=== PATIENT | female | born 1995 | race Caucasian/White ===

== ENCOUNTER → 2018-10-25 17:41 | Outpatient (CLI) | payer BC, SELFPAY ==
[2018-10-25 20:44] LABS: Chlamydia Trachomatis by PCR Negative (Negative); Neisserai gonorrhoeae by PCR Negative (Negative); Probe Check PASS; Sample Adequacy Control PASS; Specimen Processing Control PASS
== END ==
PROVIDERS: Family Provider Family Medicine; PCP Family Medicine; Referring Provider Obstetrics & Gynecology; Visit Provider Obstetrics & Gynecology
DX: Z12.4 Encounter for screening for malignant neoplasm of cervix (principal); Z11.3 Encounter for screening for infections with a predominantly sexual mode of transmission
CPT/HCPCS: 87491; 87591; 88175; G0145

== ENCOUNTER → 2019-11-27 16:05 | Outpatient (CLI) | payer OTHER, SELFPAY ==
[2018-11-21 17:14] VITALS: BMI 23.7
[2019-12-03 23:58] LABS: HPV APTIMA, High Risk Positive (Negative)
[2019-12-06 00:30] LABS: HPV Reflexed? YES, CHARGE PATIENT
== END ==
PROVIDERS: PCP Family Medicine; Referring Provider Obstetrics & Gynecology; Visit Provider Obstetrics & Gynecology
DX: Z12.4 Encounter for screening for malignant neoplasm of cervix (principal)
CPT/HCPCS: 87624; 88175; G0145

== ENCOUNTER → 2020-12-30 11:39 | Outpatient (CLI) | payer OTHER, SELFPAY ==
[2018-11-21 17:14] VITALS: BMI 23.7
[2021-01-06 12:07] LABS: HPV APTIMA, High Risk Positive (Negative)
[2021-01-06 12:08] LABS: HPV Reflexed? YES, CHARGE PATIENT
== END ==
PROVIDERS: Visit Provider Obstetrics & Gynecology
DX: Z12.4 Encounter for screening for malignant neoplasm of cervix (principal)
CPT/HCPCS: 87624; 88175; G0145

== ENCOUNTER → 2021-01-21 17:33 | Outpatient (CLI) | payer OTHER, SELFPAY ==
[2018-11-21 17:14] VITALS: BMI 23.7
--- NOTE | 2021-01-21 | IMM_PTH ---
PATIENT: CODY COOL LOC: [facility] U#:[id number] AGE/SX: 29/F ROOM: RE01/21/[address]: Dr. Herve Ragnel MD : 1995 BED: DIS: SPEC #: [id number] RECD: 01/25/21 11:44 STATUS: CONCEPCION RETray #: [id number] MARILU: 01/21/21 00:[address]: Herve Rangel DEPT: IMMUNOHISTOCHEMISTRY RECD BY: Fela Flores Tissues: A - Uterine cervix, NOS Procedures: p16 (initial) KI-67 (add) PHYSICIAN & INSTITUTION [place] [address] SPECIMEN INFORMATION: Tissue Source: A ? Cervical biopsy Clinical Info: R87.612 Specimen Number: [id number] CPT code: 39588, 49992 METHODOLOGY: Deparaffinized sections of prefer/formalin-fixed tissue or PAP/DQ stained slides are incubated with monoclonal/polyclonal antibodies/oligonucleotide probes. Localization is made via biotin free immunoperoxidase method. Appropriate controls are performed and reacted as expected. Results on target cell population are indicated in the following table: RESULTS: ANTIBODY / CLONE RESULT Block A P16 (E6H4) positive, patchy to block-like Ki-67 (30-9) positive, mild These tests were developed and their performance characteristics determined by [facility]. They may not have been cleared or approved by the U.S. Food and Drug Administration. The FDA has determined that such clearance or approval is not necessary. The above immunohistochemical/dualISH markers are ordered and reviewed by the Pathologist. INTERPRETATION: A. Cervix, biopsy: Focal mild to moderate squamous dysplasia, MARCO I-II (HSIL). AM:khang 01/26/2021
--- NOTE | 2021-01-21 15:00 | CER_PTH ---
PATIENT: CODY COOL LOC: [facility] U#:[id number] AGE/SX: 29/F ROOM: RE01/21/[address]: Dr. Herve Rangel MD : 1995 BED: DIS: SPEC #: [id number] RECD: 01/21/21 17:45 STATUS: CONCEPCION IGLESIA #: [id number] MARILU: 01/21/21 15:[address]: Herve Rangel DEPT: SURGICAL PATHOLOGY RECD BY: Flori Narvaez Tissues: A - Uterine cervix, NOS B - Endocervical Procedures: Surgery Specimen Level IV HEADER OPERATION: Colposcopy PRE-OP DIAGNOSIS: R87.612 TISSUE SUBMITTED: A ? Cervical biopsy at [facility] MICROSCOPIC DIAGNOSIS A. Cervix, biopsy: Mild and focal moderate squamous dysplasia, CIN1-II (HSIL). Squamous metaplasia and chronic inflammation. See comment. B. Endocervix, curettings: Strips of benign endocervical mucosa. No evidence of dysplasia. AM:khang 01/25/2021 COMMENT A. Results from immunohistochemistry ([id number]) for surrogate HPV marker (p16) will be reported separately. Case has been reviewed in consultation with Dr. Castellano who concurs with the above diagnosis. IDC:SJ MICROSCOPIC DESCRIPTION Slides are reviewed. GROSS DESCRIPTION A - Received in fixative is one container labeled with the patient's name and designated cervical biopsy. The specimen consists of multiple irregular fragments of light morales soft tissue that in aggregate measure 1.5 x 0.5 x 0.1 cm. The specimen is totally submitted in one cassette. B - Received in fixative is one container labeled with the patient's name and designated ECC. The specimen consists of light to dark morales mucoid tissue measuring in aggregate 2.5 x 1.5 x <0.1 cm. The specimen is totally submitted in one cassette. / AM:khang 01/22/21 TC:3 CPT: 07225 x2
== END ==
PROVIDERS: Visit Provider Obstetrics & Gynecology
DX: R87.612 Low grade squamous intraepithelial lesion on cytologic smear of cervix (LGSIL) (principal)
CPT/HCPCS: 88305; 88341; 88342

== ENCOUNTER 2021-03-18 06:23 | Day surgery (SDC) | payer OTHER, SELFPAY ==
[2018-11-21 17:14] VITALS: BMI 23.7
[2021-03-18] VITALS (7 sets, daily range): BP systolic 112–135; BP diastolic 67–79; PULSE 55–72; RESP 14–18; TEMP 36.1–36.4; O2SAT 97–100; BMI 22.6
--- NOTE | 2021-03-18 | CER_PTH ---
PATIENT: CODY COOL LOC: [facility] U#:[id number] AGE/SX: 25/F ROOM: RE03/18/[address]: Dr. Herve Rangel MD : 1995 BED: DIS: 03/18/2021 SPEC #: [id number] RECD: 03/18/21 12:50 STATUS: CONCEPCION IGLESIA #: [id number] MARILU: 03/18/21 00:[address]: Herve Rangel DEPT: SURGICAL PATHOLOGY RECD BY: Harsh Stuart ENTERED: 03/18/21 12:50 SP TYPE: CERV OTHR DR: Dr. Wade Cristobal MD Tissues: Uterine cervix, NOS Procedures: Surgery Specimen Level V HEADER OPERATION: LEEP cone PRE-OP DIAGNOSIS: LGSIL TISSUE SUBMITTED: Ectocervix, stitch as 12 o?clock MICROSCOPIC DIAGNOSIS Ectocervix, LEEP conization: Mild squamous dysplasia, MARCO 1. Margins are free of dysplasia. Acute and chronic inflammation and squamous metaplasia. See comment. SJ:khang 03/19/2021 COMMENT Results from immunohistochemistry ([id number]) for surrogate HPV marker (p16) will be reported separately. Please make reference to previous specimen ([id number]) cervix, biopsy with diagnosis of ?mild and focal moderate squamous dysplasia.? Case has been reviewed in consultation with Dr. Castellano who concurs with the above diagnosis. IDC:SARAH MICROSCOPIC DESCRIPTION Slides are reviewed. GROSS DESCRIPTION Received in fixative is one container labeled with the patient's name and designated ectocervix, stitch as 12 o'clock. The specimen consists of two indurated pieces of morales tissue. One of the pieces measure 1.5 x 1.5 x 0.3 cm. This is oriented by a suture at 12 o?clock. It is open at 9 o?clock position. Also present in the container is a second piece of semicircular piece of morales, indurated tissue measuring 2 x 0.5 x 0.3 cm. A suture is also noted, most likely representing 12 o?clock positon; however, 3 to 6 o?clock portion of this tissue is absent from the specimen. No mucosal lesion is identified. Nonmucosal surface is inked black. The entire specimen is submitted in seven cassettes as follows: 1-4 - larger piece of tissue (1 - 12 to 3 o?clock, 2 - 3 to 6 o?clock, 3 - 6 to 9 o?clock and 4 - 9 to 12 o?clock), 5-7 - smaller piece of tissue (5 - 12 to 3 o?clock, 6 - 6 to 9 o?clock, 7 - 9 to 12 o?clock). / SARAH:khang 03/18/21 TC:5 CPT: 51063
--- NOTE | 2021-03-18 | IMM_PTH ---
PATIENT: CODY COOL LOC: [facility] [place] U#:[id number] AGE/SX: 25/F ROOM: RE03/18/[address]: Dr. Herve Rangel MD : 1995 BED: DIS: 03/18/2021 SPEC #: [id number] RECD: 03/19/21 14:14 STATUS: CONCEPCION REQ #: [id number] MARILU: 03/18/21 00:[address]: Herve Rangel DEPT: IMMUNOHISTOCHEMISTRY RECD BY: Fela Flores ENTERED: 03/19/21 14:15 SP TYPE: IMMUNO OTHR DR: Dr. Wade Cristobal MD Tissues: Uterine cervix, NOS Procedures: p16 (initial) KI-67 (add) P16 (add) PHYSICIAN & INSTITUTION [place] [address] SPECIMEN INFORMATION: Tissue Source: Ectocervix Clinical Info: LGSIL Specimen Number: [id number] #1-4 CPT code: 61009, 09060 x7 METHODOLOGY: Deparaffinized sections of prefer/formalin-fixed tissue or PAP/DQ stained slides are incubated with monoclonal/polyclonal antibodies/oligonucleotide probes. Localization is made via biotin free immunoperoxidase method. Appropriate controls are performed and reacted as expected. Results on target cell population are indicated in the following table: RESULTS: ANTIBODY / CLONE RESULT Block 1 P16 (E6H4) positive, focal, patchy Ki-67 (30-9) positive, low Block 2 P16 (E6H4) positive, focal, patchy Ki-67 (30-9) positive, low Block 3 P16 (E6H4) positive, focal, patchy Ki-67 (30-9) positive, low Block 4 P16 (E6H4) positive, focal, patchy Ki-67 (30-9) positive, low These tests were developed and their performance characteristics determined by [facility]. They may not have been cleared or approved by the U.S. Food and Drug Administration. The FDA has determined that such clearance or approval is not necessary. The above immunohistochemical/dualISH markers are ordered and reviewed by the Pathologist. INTERPRETATION: Ectocervix, LEEP conization: Focal HPV change, LSIL AM:adan 03/23/2021
[2021-03-18 07:14] LABS: Internal QC Validated? YES +Cl - CLEAR BKGD; Pregnancy, Urine Negative Negative
--- NOTE | 2021-03-18 07:14 | PCM.HP.BLA ---
History and Physical Date of Admission: 03/18/21 Surgical History and Physical Date: 03/18/2021 Name: CODY WYMAN Age: 25 Date of : 1995 Cody Wyman, a 25 year old female 0 0 0 0 0, presents for LEEP on March 18, 2021 at 8:15. -- [facility] for LEEP 03-18-21. Consents signed. Questions answered. There have been no changes in her health. Allergy and medicaiton lists current. MEDICATIONS HISTORY: ALLERGIES: No Known Drug Allergies Infections - Varicella Vaccine, [place] Illnesses - none Accidents - None Hospitalizations - None Review of Systems: GENERAL - Denies fever, or chills SKIN - Denies skin changes EYES - Denies visual changes EARS - Denies difficulty hearing NOSE - Denies nasal congestion or bleeding MOUTH - Denies sore throat or difficulty swallowing NECK - Denies pain or swelling RESPIRATORY - Denies shortness of breath or wheezing CARDIOVASCULAR - Denies palpitations or chest pain GASTROINTESTINAL - Denies nausea, vomiting, diarrhea, constipation GENITOURINARY - Denies dysuria, frequency of urination, incontinence of urine MUSCULOSKELETAL - Denies joint or muscle pain NEUROLOGICAL - Denies localized numbness or weakness PSYCHIATRIC - Denies depression or anxiety ENDOCRINE - Denies heat or cold intolerance, weight loss or gain HEMATO-IMMUNOLOGIC - Denies excesive bleeding with cuts SOCIAL HISTORY: Alcohol Use - RARELY Smoking - denies smoking Diet - balanced Diet Lifestyle - moderate stress lifestyle Exercise - minimal Seat Belt Use - always Employer - [employer] 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 Drug Use - denies use of street drugs Sexual Activity - ACTIVE ONE PARTNER and 5 months Hours Worked - 40 hours per week Spouse-Sig Other Name - Dayday Wyman Spouse-Sig Other Occupation - [employer] Spouse-Sig Other Phone No - [phone] Control - NONE FAMILY HISTORY: MENSTRUAL HISTORY: LMP Known?- DefiniteAmount/Duration - 4-5 DAYS, Regularity - Irregular, Frequency - monthly days, LMP - 02/18/21 PAST PREGNANCIES: Total Pregnancies - 0; Full Term Pregnancies - 0; Premature - 0; Abortions, Induced - 0; Abortions, Spontaneous - 0; Ectopics - 0; Multiple Births - 0; Living Children - 0 PHYSICAL EXAM BP- 116/68 Sitting, Right arm, regular cuff Weight- 148.74752 lbs Height- 67 inch BMI:23.958141282216550 CONSTITUTIONAL - NAD, well nourished, and well developed SKIN - No rash, lesions, or ulcers HEENT - Normocephalic, PERRLA, EOMI NECK - No nodes, no nuchal rigidity and thyroid normal size and texture EXTREMITIES - No edema or calf tenderness NEUROLOGICAL - Cranial nerves II-XII grossly intact PSYCHIATRIC - A and O to time, place, person, mood and affect External Genitial Vagina - non-tender without lesions Urethra/Urethral Meatus - non-tender Bladder - non-tender Vagina - vaginal rodriguez are pink and moist without loss of rugae and no evidence of atropy Cervix - without cervical motion tenderness and has normal size and features without evident lesions Uterus - 5-6 cm in size, mobile and nontender Adnexa - clear without massess or tenderness ASSESSMENT/PLAN: 1. 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 Now status post colposcopy that showed MARCO-2 Educated patient on results. Risk benefits alternatives. Discussed repeat Pap smear in 6 months x 2 versus LEEP procedure now. Discussed risks of future pregnancies with delivery and miscarriage. Patient stated understanding wish to proceed with LEEP procedure 2. Encounter For Other Preprocedural Examination For LEEP procedure Educated on risk benefits alternatives. Patient stated understanding wish to proceed. All questions were answered consent was signed Educated patient on preoperative and postoperative process, discussed recovery and pain control
[2021-03-18] MEDS: Lactated Ringers 1,000 ML 100 ML IV (07:46)
[2021-03-18] MEDS: Iodine/Potassium Iodide 14ML Bottle 1 DRP TOPICAL (08:45)
[2021-03-18] MEDS: FERRIC SUBSULFATE 8 GM SOLN (08:45)
--- NOTE | 2021-03-18 08:52 | PCM.DC ---
Discharge Instructions Diet Discharge Diet: No restrictions Activity Discharge Activity: Return to Normal Activity, May Drive, May Shower and - (No tub baths for 2 weeks) May resume sexual activity in: 4-6 weeks Weight Bearing Status: Weight bearing as tolerated Dressing / Incision Call your doctor if your incision/area has: Continuous Slow Oozing and Foul Smelling Discharge Call your doctor if you observe: Fever of 101 or Higher, Shortness of breath and Chest pain Follow Up Care Please Follow Up With: Herve Rangel MD When: 2-week postoperatively Test Results: Test results from this visit will be discussed in further detail at your follow-up appointment, if applicable. Discharge Plan Admission Attending Provider: Herve Rangel Primary Care Provider: Shaheed Cristobal Discharge Orders/Prescriptions Prescriptions: No Action 1 mg Tablet 1 tab PO DAILY RF: 0 Collagen Plus Vitamin C 125-740 mg Capsule 1 cap PO DAILY RF: 0 Disposition Discharge Orders: Discharge Patient (Routine); Ordered 03/18/21 Ordered By: Dr. Herve Rangel
--- NOTE | 2021-03-18 08:52 | PCM.OPRPT ---
Report of Operation Date of Procedure: 03/18/21 Pre-Operative Diagnosis: LGSIL HPV positive Post-Operative Diagnosis: LGSIL HPV positive Surgery/Procedure Performed:: LEEP Description of Surgical Findings:: Surgeon: Herve Rangel MD Anesthesia: MAC EBL: 10 cc Urine output: 50 cc IV fluids: 1100 cc Complications: None Specimen: Ectocervix Findings: Lugol's solution placed over cervix with opaque portions at 12 and 6:00. Otherwise within normal limits Consent: Patient with LGSIL HPV positive elects for LEEP procedure. Patient understands risk of the procedure include but are not limited to visceral or vascular injury, prolonged hospitalization, blood loss and need for transfusion, reoperation. Patient states understanding and wishes to proceed. All questions were answered and consent was signed. Procedure: Patient was brought back to the OR where MAC anesthesia was found be adequate. Patient was prepared and draped in a dorsolithotomy position with yellowfin stirrups. A speculum was placed and Lugol's solution was placed over the ectocervix, above findings were noted. Using a LEEP electrocautery, LEEP procedure and specimen was obtained. Sent to pathology. Hemostasis was achieved with rollerball Bovie and Monsel solution. All counts correct x2. Patient tolerated the procedure well and was brought to recovery in stable condition.
== END 2021-03-18 09:58 | disposition home or self-care (01) ==
LOC: SDC 06:24 → AC 06:26
PROVIDERS: Anesthesiology; PCP Family Medicine; Referring Provider Obstetrics & Gynecology; Visit Provider Obstetrics & Gynecology
PROC: 0UBC7ZZ Excision of Cervix, Via Natural or Artificial Opening (ICD-10-PCS; CPT 57522; principal; 2021-03-18 08:10)
DX: N87.0 Mild cervical dysplasia (principal); R87.820 Cervical low risk human papillomavirus (HPV) DNA test positive
CPT/HCPCS: 57522; 81025; 87426; 88307; 88341; 88342; C9803; J7120; J2405

== ENCOUNTER 2021-10-12 15:31 | Outpatient (CLI) | payer OTHER, SELFPAY ==
[2021-10-12 16:08] LABS: Absolute Lymphocyte Count 2.59 X10^3/uL (0.83-4.51); Absolute Neutrophil Count 8.9 X10^3/uL (2.0-7.7); Basophil# 0.04 X10^3/uL; Basophil% 0.3 % (0-1); Eosinophil# 0.12 X10^3/uL; Hemoglobin 13.7 g/dL (12.0-15.0); Lymphocyte # 2.59 X10^3/ul (0.83-4.51); Lymphocyte % 20.5 % (19-41); Mean Corp Hgb Conc 34.3 g/dL (32-36); Mean Corpuscular Hgb 28.2 pg (27.0-32.0); Mean Corpuscular Volume 82.5 fL (81-99); Monocyte# 0.92 X10^3/uL; Monocyte% 7.3 % (0-10); NRBC Flagged by Analyzer 0 % (0-5); Neutrophil # 8.89 X10^3/uL (2.7-7.7); Neutrophil % 70.5 % (47-70); Platelet Count 241 K/mm3 (150-450); RBC Distribution Width CV 12.5 % (11.6-14.6); RBC Distribution Width SD 37.6 fl (35.1-43.9); Red Blood Count 4.85 M/mm3 (4.2-5.4); White Blood Count 12.6 K/mm3 (4.4-11.0)
[2021-10-13 09:18] LABS: HIV - WCH Non-Reactive (Nonreactive); Hepatitis B Surface Antigen Non-Reactive (Nonreactive); Hepatitis C Antibody Non-Reactive (Nonreactive); Rubella IgG Reactive (Nonreactive); Syphilis Antibodies Non-reactive
[2021-10-14 22:07] LABS: Chlamydia By Nucleic Acid AMP Negative (Negative)
[2021-10-14 23:01] LABS: Gonococcus By Nucleic Acid AMP Negative (Negative)
== END 2021-10-12 23:59 | disposition home or self-care (01) ==
LOC: WOBLAB 15:31
PROVIDERS: PCP Family Medicine; Visit Provider Obstetrics & Gynecology
DX: Z34.81 Encounter for supervision of other normal pregnancy, first trimester (principal)
CPT/HCPCS: 36415; 85025; 86703; 86762; 86780; 86803; 87086; 87088; 87340; 87491; 87591

== ENCOUNTER → 2022-03-04 | Outpatient (CLI) | payer OTHER, SELFPAY ==
[2022-03-04 18:05] LABS: Absolute Lymphocyte Count 1.86 X10^3/uL (0.83-4.51); Absolute Neutrophil Count 9.5 X10^3/uL (2.0-7.7); Basophil# 0.04 X10^3/uL; Basophil% 0.3 % (0-1); Eosinophil# 0.03 X10^3/uL; Eosinophils% 0.2 % (0-5); Hematocrit 36.1 % (37-47); Hemoglobin 12.2 g/dL (12.0-15.0); Lymphocyte # 1.86 X10^3/ul (0.83-4.51); Lymphocyte % 15.3 % (19-41); Mean Corp Hgb Conc 33.8 g/dL (32-36); Mean Corpuscular Volume 88.7 fL (81-99); Mean Platelet Vol. 11.2 fl (6.2-12.0); Monocyte# 0.69 X10^3/uL; Monocyte% 5.7 % (0-10); NRBC Flagged by Analyzer 0 % (0-5); Neutrophil # 9.47 X10^3/uL (2.7-7.7); Neutrophil % 77.9 % (47-70); Platelet Count 203 K/mm3 (150-450); RBC Distribution Width CV 12.9 % (11.6-14.6); RBC Distribution Width SD 41.8 fl (35.1-43.9); Red Blood Count 4.07 M/mm3 (4.2-5.4); White Blood Count 12.2 K/mm3 (4.4-11.0)
[2022-03-04 18:12] LABS: Glucose Challenge Gest 1H 50g 177 mg/dL (70-140)
== END | disposition home or self-care (01) ==
PROVIDERS: PCP Family Medicine; Visit Provider Obstetrics & Gynecology
DX: Z34.83 Encounter for supervision of other normal pregnancy, third trimester (principal)
CPT/HCPCS: 36415; 82950; 85025

== ENCOUNTER → 2022-03-15 | Outpatient (CLI) | payer OTHER, SELFPAY ==
[2022-03-15 09:57] LABS: Glucose GTT-Gestation. Fasting 78 mg/dL (<105)
[2022-03-15 10:45] LABS: Glucose GTT-Gestational 1 Hr 172 mg/dL (<190)
[2022-03-15 12:49] LABS: Glucose GTT-Gestational 2 Hr 157 mg/dL (<165)
[2022-03-15 12:49] LABS: Glucose GTT-Gestational 3 Hr 150 L (<145)
== END | disposition home or self-care (01) ==
LOC: WOBLAB 08:39
PROVIDERS: PCP Family Medicine; Visit Provider Obstetrics & Gynecology
DX: Z34.83 Encounter for supervision of other normal pregnancy, third trimester (principal)
CPT/HCPCS: 36415; 82951; 82952

== ENCOUNTER → 2022-05-03 | Outpatient (CLI) | payer OTHER, SELFPAY | END | disposition home or self-care (01) | LOC: LABSPEC 09:26 | PROVIDERS: PCP Family Medicine; Visit Provider Obstetrics & Gynecology | DX: Z36.85 Encounter for antenatal screening for Streptococcus B (principal) | CPT/HCPCS: 87081 ==

== ENCOUNTER 2022-05-18 19:00 | Inpatient (IN) | payer OTHER, SELFPAY ==
[2022-05-18] VITALS (13 sets, daily range): BP systolic 121; BP diastolic 73; PULSE 56–69; TEMP 37.4; O2SAT 98–100; BMI 25.4
[2022-05-18 19:53] LABS: Absolute Lymphocyte Count 2.07 X10^3/uL (0.83-4.51); Absolute Neutrophil Count 7.9 X10^3/uL (2.0-7.7); Basophil# 0.02 X10^3/uL; Basophil% 0.2 % (0-1); Eosinophil# 0.05 X10^3/uL; Eosinophils% 0.5 % (0-5); Hematocrit 36.4 % (37-47); Hemoglobin 12.5 g/dL (12.0-15.0); Lymphocyte # 2.07 X10^3/ul (0.83-4.51); Lymphocyte % 18.8 % (19-41); Mean Corp Hgb Conc 34.3 g/dL (32-36); Mean Corpuscular Hgb 28.8 pg (27.0-32.0); Mean Corpuscular Volume 83.9 fL (81-99); Mean Platelet Vol. 11.3 fl (6.2-12.0); Monocyte% 8.2 % (0-10); NRBC Flagged by Analyzer 0 % (0-5); Neutrophil # 7.93 X10^3/uL (2.7-7.7); Neutrophil % 71.7 % (47-70); Platelet Count 180 K/mm3 (150-450); RBC Distribution Width SD 39.1 fl (35.1-43.9); Red Blood Count 4.34 M/mm3 (4.2-5.4)
[2022-05-18 20:01] LABS: Bedside Glucose 91 mg/dL (74-106)
[2022-05-18] MEDS: miSOPROStol 25 MCG TABLET VAGINAL (20:20)
[2022-05-18 20:55] LABS: Bedside Glucose 72 mg/dL (74-106)
[2022-05-19] VITALS (46 sets, daily range): BP systolic 104–140; BP diastolic 63–81; PULSE 62–92; RESP 14–16; TEMP 36.3–37.1; O2SAT 99–100
[2022-05-19] MEDS: miSOPROStol 25 MCG TABLET VAGINAL (00:36)
[2022-05-19 02:54] LABS: Bedside Glucose 75 mg/dL (74-106)
[2022-05-19 04:31] LABS: Bedside Glucose 76 mg/dL (74-106)
[2022-05-19] MEDS: Lactated Ringers 1,000 ML 50 ML IV (05:00)
[2022-05-19] MEDS: LACTATED RINGERS 500 ML 999 ML IV (05:52)
[2022-05-19 06:10] LABS: Bedside Glucose 79 mg/dL (74-106)
[2022-05-19] MEDS: Oxytocin 15 Units/NS 250ml 15 UNITS/250 ML IV.SOLN 334 UNITS IV (06:43)
--- NOTE | 2022-05-19 07:11 | HP.PCM.OB_ITS ---
History and Physical Date of Admission: 05/18/22
--- NOTE | 2022-05-19 07:11 | PCM.HP.BLA ---
History and Physical Date of Admission: 05/18/22
--- NOTE | 2022-05-19 07:11 | EX.PCM.OBRPT ---
Vaginal Delivery Operative Information Date of Procedure: 05/19/22 Pre-Operative Diagnosis: George intrauterine , GDMA1 Post-Operative Diagnosis: George intrauterine , GDMA1 Surgery / Procedure Performed: Spontaneous Vaginal Delivery Type of Anesthesia: None Estimated Blood Loss: 350cc Findings Description of Procedure: Spontaneous vaginal delivery viable female. Nuchal cord x1, delivered through, loose. Baby to mom. Cord clamped and cut. Spontaneous delivery of placenta. Lidocaine injected. First-degree laceration repaired in usual fashion, bilateral labial lacerations repaired with [id number] stitches. hemostatic. A Gender: Female (1 minute): 8 (5 minute): 9
[2022-05-19 08:30] LABS: Bedside Glucose 83 mg/dL (74-106)
--- NOTE | 2022-05-19 09:25 | PCM.HP.BLA ---
History and Physical Date of Admission: 05/18/22 HPI: 26-year-old G1, P0 at 39/0 weeks, DUSTIN 05/25/2022 by LMP, admitted for induction of labor for GDM A1. Denies leaking of fluid, contractions, vaginal bleeding. Reports movement. Denies headache or vision changes, chest pain or shortness of breath, nausea or vomiting, diarrhea or constipation, fevers or chills. 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 Medical history: Denies Surgical history: LEEP, wisdom teeth extraction Allergies: No known drug allergies Social history: Denies tobacco, alcohol, drug use Medications: vitamin Family history: Noncontributory Review of system: Negative otherwise stated above Physical exam: General: No acute distress HEENT: Normocephalic/atraumatic, PERRLA Cardiorespiratory: No increased effort Abdomen: Soft, nontender, gravid Extremities: No edema Neurologic: Cranial nerves II through XII grossly intact, no focal deficits Musculoskeletal: Strength out of 5 throughout all extremities Cervical exam: Per field engineer/plan: 26-year-old G1, P0 at 39/0 weeks, DUSTIN 05/25/2022 by LMP, admitted for induction of labor for GDM A1. ?Admit to for induction of labor with Cytotec ?GBS negative ?Blood sugars throughout labor per protocol
[2022-05-19] MEDS: Ibuprofen 600 MG Tablet PO ×2 (09:44→15:50)
[2022-05-19] MEDS: Acetaminophen 500 MG Tablet 1000 MG PO (22:04)
[2022-05-20 00:50] VITALS: BP 102/64; PULSE 66; RESP 16; TEMP 36.2
[2022-05-20] MEDS: Ibuprofen 600 MG Tablet PO ×2 (03:37→10:14)
[2022-05-20 03:38] VITALS: BP 104/68; PULSE 62; RESP 16; TEMP 36.3
[2022-05-20 06:35] LABS: Bedside Glucose 78 mg/dL (74-106)
--- NOTE | 2022-05-20 06:58 | DS.PCM_ITS ---
Discharge Summary Date of Admission: 05/19/22 Date of Discharge: 05/20/22 Summary: Patient arrived for induction of labor at term with GDM A1. Subsequently delivered vaginally on 05/19/2022. Routine recovery and discharged home on 05/20/2022 Meaningful Use Info Meaningful Use Diagnoses (Choose all that apply): None applicable Discharge Plan Admission Admit Date/Time: 05/18/22 19:00 Primary Reason for Your Visit: Induction of labor Attending Provider: Herve Rangel Primary Care Provider: Shaheed Cristobal Instructions Additional Instructions / Restrictions: Regular diet. Weightbearing as tolerated. Okay to shower. No intercourse for 4 to 6 weeks. Call if fevers, chills, chest pain, shortness of breath. Follow- up 4 to 6 weeks Discharge Orders/Prescriptions Prescriptions: No Action 1 mg Tablet 1 tab PO DAILY Referrals / Follow Up: Shaheed Cristobal MD [Primary Care Provider] - Disposition Disposition (needs filled in before D/C Order can be placed): Home, Self Care
--- NOTE | 2022-05-20 06:59 | PN.OBGYN_ITS ---
Subjective Subjective No overnight complaints Objective Data Objective Data Vital Signs: Vital Signs Temp Pulse Resp BP Pulse Ox 97.4 F L 62 16 104/68 100 05/20/22 03:38 05/20/22 03:38 05/20/22 03:38 05/20/22 03:38 05/19/22 09:02 Weight: 167 lb 8.821 oz Body Mass Index (BMI) 25.4 Intake & Output: Intake and Output for Last 24 Hours 05/18/22 05/19/22 05/20/22 23:59 23:59 23:59 Intake Total 840 / 840 Output Total 500 / 500 1050 / 1050 Balance -500 / -500 -210 / -210 Lab / Micro Data Result Diagrams: 05/18/22 19:30 Labs: Laboratory Results - last 24 hr 05/19/22 07:36: POC Glucose 83 05/19/22 14:20: Screen NEGATIVE, Baby's Blood Type A POSITIVE, Baby's TIFFANY NEGATIVE 05/20/22 06:12: POC Glucose 78 Micro: Microbiology 05/18/22 19:30 Nasal Secretion SARS-CoV-2 Antigen (Rapid) - Final Physical Exam Const alert, oriented x3, no apparent distress, average body habitus, healthy appearing and well nourished HEENT normocephalic and moist oral mucous membranes Eyes PERRL Neck full ROM Resp normal respiratory effort, no retractions and no use of accessory muscles GI GI Narrative: Soft, nontender, uterus firm and below umbilicus Extremity normal to inspection, full ROM and no clubbing, cyanosis or edema Neuro moves all extremities and no focal motor deficits Psych mental status grossly normal, affect normal, speech normal and activity/motor behavior normal Assessment & Plan (1) Vaginal delivery: PLAN: day 1. Breast-feeding. Pain well controlled. GDM A1 we will follow-up . 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
[2022-05-20 08:30] VITALS: BP 107/77; PULSE 84; RESP 14; TEMP 36.2
[2022-05-20] MEDS: Acetaminophen 500 MG Tablet 1000 MG PO (12:55)
[2022-05-20 14:04] VITALS: BP 108/63; PULSE 74; RESP 13; TEMP 36.2
== END 2022-05-20 16:00 | disposition home or self-care (01) | DRG 807 ==
PROVIDERS: Admitting Provider Obstetrics & Gynecology; PCP Family Medicine; Visit Provider Obstetrics & Gynecology
DX: O24.420 Gestational diabetes mellitus in childbirth, diet controlled (principal); Z37.0 Single live birth; O69.81X0 Labor and delivery complicated by cord around neck, without compression, not applicable or unspecified; O70.0 First degree perineal laceration during delivery; Z3A.39 39 weeks gestation of pregnancy
CPT/HCPCS: 59025; 59050; 82962; 85025; 85461; 86850; 86900; 86901; 87811; 99218; J7120; G0378; J2790

== ENCOUNTER → 2022-07-05 | Outpatient (CLI) | payer OTHER, SELFPAY ==
[2022-07-05 11:22] LABS: Glucose 2 Hour Postprandial 89 mg/dL (<140)
== END | disposition home or self-care (01) ==
LOC: WOBLAB 08:42
PROVIDERS: PCP Family Medicine; Visit Provider Obstetrics & Gynecology
DX: O24.410 Gestational diabetes mellitus in pregnancy, diet controlled (principal); Z3A.00 Weeks of gestation of pregnancy not specified
CPT/HCPCS: 36415; 82950

== ENCOUNTER → 2022-12-27 | Outpatient (CLI) | payer OTHER, SELFPAY ==
[2023-01-02 20:07] LABS: HPV APTIMA, High Risk Positive (Negative); HPV Genotype 16, Aptima Negative (Negative); HPV Genotype 18,45 Aptima Negative (Negative)
== END | disposition home or self-care (01) ==
LOC: LABSPEC 11:16
PROVIDERS: PCP Family Medicine; Visit Provider Obstetrics & Gynecology
DX: Z12.4 Encounter for screening for malignant neoplasm of cervix (principal)
CPT/HCPCS: 87624; 88175; G0145

== ENCOUNTER → 2023-01-19 | Outpatient (CLI) | payer OTHER, SELFPAY ==
--- NOTE | 2023-01-19 | CER_PTH ---
PATIENT: CODY OCOL LOC: [facility] U#:[id number] AGE/SX: 27/F ROOM: RE01/19/[address]: Dr. Herve Rangel MD : 1995 BED: DIS: 01/19/2023 SPEC #: [id number] RECD: 01/19/23 16:51 STATUS: CONCEPCION IGLESIA #: [id number] MARILU: 01/19/23 00:[address]: Herve Rangel DEPT: SURGICAL PATHOLOGY RECD BY: Josselyn Darby ENTERED: 01/20/23 08:40 SP TYPE: CERV OTHR DR: Dr. Wade Cristobal MD Tissues: A - Uterine cervix, NOS B - Endocervical Procedures: Surgery Specimen Level IV HEADER OPERATION: Colposcopy PRE-OP DIAGNOSIS: R87.820 TISSUE SUBMITTED: A - Tissue 1, 5, 7 & 11 o'clock, B - ECC MICROSCOPIC DIAGNOSIS A - Cervix, 1, 5, 7 & 11 o'clock, biopsy: Negative for dysplasia. Chronic inflammation. See comment. B - Endocervical curettings: Fragments of benign endocervical epithelium, desquamated benign squamous epithelial cells, blood and mucus, negative for dysplasia. SJ: 01/23/23 COMMENT Immunohistochemistry ([id number]) supports the above diagnosis. MICROSCOPIC DESCRIPTION Slides are reviewed. GROSS DESCRIPTION A - Received in fixative is one container labeled with the patient's name and designated Tissue 1, 5, 7 & 11 o'clock. The specimen consists of multiple irregular fragments of light morales soft tissue that in aggregate measure 1.0 x 0.5 x 0.1 cm. The specimen is totally submitted in one cassette. B - Received in fixative is one container labeled with the patient's name and designated ECC. The specimen consists of multiple fragments of hemorrhagic mucoid tissue that in aggregate measure 2.0 x 2.0 x 0.1 cm. The specimen is totally submitted in one cassette. / SARAH:khang 01/20/2023 TC:3 CPT: 66965 x2
--- NOTE | 2023-01-20 | IMM_PTH ---
PATIENT: CODY COOL LOC: [facility] U#:[id number] AGE/SX: 27/F ROOM: RE01/19/[address]: Dr. Herve Rangel MD : 1995 BED: DIS: 01/19/2023 SPEC #: [id number] RECD: 01/23/23 14:49 STATUS: CONCEPCION RETray #: [id number] MARILU: 01/20/23 00:[address]: Herve Rangel DEPT: IMMUNOHISTOCHEMISTRY RECD BY: Josselyn Darby ENTERED: 01/23/23 14:50 SP TYPE: IMMUNO OT DR: Dr. Wade Cristobal MD Tissues: Uterine cervix, NOS Procedures: p16 (initial) KI-67 (add) PHYSICIAN & INSTITUTION [place] [id number] SPECIMEN INFORMATION: Tissue Source: A. Cervical tissue 1, 5 ,7 ,& 11 o'clock Clinical Info: R87.820 Specimen Number: [id number] CPT code: 01058, 41128 METHODOLOGY: Deparaffinized sections of prefer/formalin-fixed tissue or PAP/DQ stained slides are incubated with monoclonal/polyclonal antibodies/oligonucleotide probes. Localization is made via biotin free immunoperoxidase method. Appropriate controls are performed and reacted as expected. Results on target cell population are indicated in the following table: RESULTS: ANTIBODY / CLONE RESULT Block A P16 (E6H4) negative Ki-67 (30-9) positive only in basal layers. These tests were developed and their performance characteristics determined by [facility]. They may not have been cleared or approved by the U.S. Food and Drug Administration. The FDA has determined that such clearance or approval is not necessary. The above immunohistochemical/dualISH markers are ordered and reviewed by the Pathologist. INTERPRETATION: A. Cervix, 1, 5 ,7 & 11 o'clock, biopsy: Negative for dysplasia. SJ: 01/24/23
== END | disposition home or self-care (01) ==
LOC: LABSPEC 16:06
PROVIDERS: PCP Family Medicine; Visit Provider Obstetrics & Gynecology
DX: R87.820 Cervical low risk human papillomavirus (HPV) DNA test positive (principal)
CPT/HCPCS: 88305; 88341; 88342

== ENCOUNTER 2023-12-01 03:13 | Inpatient (IN) | payer OTHER, SELFPAY ==
[2023-12-01] VITALS (21 sets, daily range): BP systolic 106–121; BP diastolic 56–86; PULSE 60–85; RESP 16–17; TEMP 36.2–36.7; O2SAT 97–99; BMI 25.9
[2023-12-01 03:19] LABS: Absolute Neutrophil Count 8.4 X10^3/uL (2.0-7.7); Basophil# 0.04 X10^3/uL; Basophil% 0.3 % (0-1); Eosinophil# 0.13 X10^3/uL; Eosinophils% 1.1 % (0-5); Hematocrit 35.5 % (37-47); Hemoglobin 11.4 g/dL (12.0-15.0); Lymphocyte % 20.6 % (19-41); Mean Corp Hgb Conc 32.1 g/dL (32-36); Mean Corpuscular Hgb 25.5 pg (27.0-32.0); Mean Corpuscular Volume 79.4 fL (81-99); Mean Platelet Vol. 11.3 fl (6.2-12.0); Monocyte# 1.05 X10^3/uL; Monocyte% 8.6 % (0-10); NRBC Flagged by Analyzer 0 % (0-5); Neutrophil # 8.38 X10^3/uL (2.7-7.7); Neutrophil % 68.9 % (47-70); Platelet Count 181 K/mm3 (150-450); RBC Distribution Width CV 13.2 % (11.6-14.6); RBC Distribution Width SD 37.7 fl (35.1-43.9); Red Blood Count 4.47 M/mm3 (4.2-5.4); White Blood Count 12.2 K/mm3 (4.4-11.0)
[2023-12-01] MEDS: Oxytocin 10 UNITS/ML Vial IM (03:40)
[2023-12-01] MEDS: Oxytocin 15 Units/NS 250ml 15 UNITS/250 ML IV.SOLN 83 UNITS IV (03:40)
[2023-12-01 04:17] LABS: Bedside Glucose 111 mg/dL (74-106)
--- NOTE | 2023-12-01 04:29 | PCM.HP.OB ---
HPI - General General Date of Admission: 12/01/23 HPI Narrative CODY COOL, is a 27 F at 39 weeks who presents with spontaneous and active labor. Maternal Data Information DUSTIN Calculator Estimated Delivery Date Method Current WG Current Estimate 12/08/23 Manual 39w 0d PFSH PFSH Medical History HPV (human papilloma virus) infection Gestational diabetes Migraine headache Non-smoker Home Medications ?Medication ?Instructions ?Recorded ?Last Taken ?Type [id number] 1 mg 1 tab PO DAILY 03/11/21 05/18/22 09:00 History tablet 1 tab' Allergy/AdvReac Type Severity Reaction Status Date / Time No Known Allergies Allergy Verified 12/01/23 03:16 Family History Other Diabetes Heart disease Surgical History (Updated 12/01/23 @ 04:10 by Martha Serna) History of surgery Hx of wisdom tooth extraction Social History Smoking Status: Never smoker History Elective abortions Hx Para 0 Spontaneous abortions Hx # Term Pregnancies Ectopic pregnancies Hx # Pregnancies Multiple births # of living children ROS Eyes Eyes: Denies blurry vision Cardiovascular Cardiovascular: Reports none; Denies chest pain at rest, chest pain with activity or dizziness Respiratory/Chest Respiratory/Chest: Denies cough or dyspnea Gastrointestinal Gastrointestinal: Reports none and other; Denies diarrhea or vomiting Genitourinary Genitourinary: Denies dysuria Musculoskeletal Musculoskeletal: Reports none Integumentary Integumentary: Reports none; Denies rash Neurologic Neurologic: Denies dizziness, headache(s) or other visual disturbances Psychiatric Psychiatric: Reports none Vital Signs Vital Signs Vital Signs: 12/01/23 03:21 12/01/23 03:21 12/01/23 03:21 Temperature Temperature Source Temporal Pulse Rate 71 Respiratory Rate 16 Blood Pressure BP Systolic BP Diastolic Pulse Ox 12/01/23 03:21 12/01/23 03:21 12/01/23 03:24 Temperature 97.1 F L Temperature Source Pulse Rate Respiratory Rate Blood Pressure 121/74 H BP Systolic 121 BP Diastolic 74 Pulse Ox 99 12/01/23 03:24 12/01/23 03:52 12/01/23 03:52 Temperature Temperature Source Pulse Rate 75 64 Respiratory Rate Blood Pressure 115/69 BP Systolic 115 BP Diastolic 69 Pulse Ox 12/01/23 04:01 12/01/23 04:01 12/01/23 04:16 Temperature Temperature Source Pulse Rate 66 Respiratory Rate Blood Pressure 117/67 111/64 BP Systolic 117 111 BP Diastolic 67 64 Pulse Ox 12/01/23 04:16 12/01/23 04:16 12/01/23 04:16 Temperature Temperature Source Temporal Pulse Rate 60 Respiratory Rate 16 Blood Pressure BP Systolic BP Diastolic Pulse Ox 12/01/23 04:16 12/01/23 04:22 12/01/23 04:22 Temperature 97.1 F L Temperature Source Pulse Rate 67 Respiratory Rate Blood Pressure BP Systolic BP Diastolic Pulse Ox 98 12/01/23 04:27 12/01/23 04:27 Temperature Temperature Source Pulse Rate 71 Respiratory Rate Blood Pressure BP Systolic BP Diastolic Pulse Ox 97 Weight Weight: 165 lb 8 oz Body Mass Index (BMI) 25.9 Physical Exam Const alert and no apparent distress General Appearance: cooperative and comfortable Exam Limitations: no limitations HEENT normocephalic Eyes General Eye: normal appearance of both eyes Neck full ROM General: normal visual inspection Chest Chest: symmetrical chest wall rise Resp normal respiratory effort and normal air movement Effort and Inspection: symmetric chest movement Auscultation: clear to auscultation bilaterally Cardio regular rate and regular rhythm GI normal to inspection, nondistended, normoactive bowel sounds Back/Spine normal ROM Extremity full ROM and no calf tenderness General Extremity: normal exam except as noted Skin no rashes or lesions noted Neuro CN's II-XII intact bilaterally Psych mental status grossly normal Labs Labs Labs: Blood Type O NEGATIVE Antibody Screen NEGATIVE Hct 35.5 % (37-47) L Hgb 11.4 g/dL (12.0-15.0) L Syphilis Total Ab Non-reactive Rubella IgG Antibody Reactive (Nonreactive) Hep Bs Antigen Non-Reactive (Nonreactive) Hepatitis C Antibody Non-Reactive (Nonreactive) Chlamydia DNA (JUAN MANUEL) Negative (Negative) N.gonorrhoeae DNA (JUAN MANUEL) Negative (Negative) HIV 1&2 Antibody Non-Reactive (Nonreactive) Glucose 1 Hr 50 gm 177 mg/dL (70-140) H Gest Glucose Tolerance MG/DL Rhogam given: Yes Miscellaneous Test GBS negative Assessment & Plan (1) (spontaneous vaginal delivery): (2) Gestational diabetes: (3) Spontaneous onset of labor: (4) Rh negative status during : PLAN: Plan CE - Complete dilation with bulging membranes Admit to L&D GBS negative Anticipate
--- NOTE | 2023-12-01 04:34 | EX.PCM.OBRPT ---
Assessment & Plan (1) Rh negative status during : (2) Spontaneous onset of labor: (3) Gestational diabetes: (4) (spontaneous vaginal delivery): (5) Precipitous delivery: Maternal Data Information DUSTIN Calculator Estimated Delivery Date Method Current WG Current Estimate 12/08/23 Manual 39w 0d Vaginal Delivery Maternal Presentation Maternal Presentation: Active Labor Maternal Presentation: at 39 weeks gestation in spontaneous, active labor Operative Information Date of Procedure: 12/01/23 Pre-Operative Diagnosis: Term gestation, Spontaneous onset of active labor Post-Operative Diagnosis: Precipitous , live male Surgery / Procedure Performed: Spontaneous Vaginal Delivery Type of Anesthesia: None Estimated Blood Loss: 250 Time of Delivery: 03:37 Findings Description of Procedure: Patient arrived to unit feeling urge to push. Complete dilation with bulging membranes. AROM for clear fluid. With minimal maternal effort, head delivered over intact perineum followed by anterior shoulder and remainder of infant body. Loose nuchal cord easily reduced. Initial infant tone and color was poor therefore cord clamped and cut without delay. Cord blood collected. Infant taken to warmer with nursery staff. Pitocin IM given for active management of the third stage of labor. Placenta delivered spontaneously and intact. Vagina and perineum intact. Fundus firm 3 below U. Lochia minimal. Vaginal sweep completed and 1 clot removed. Infant returned skin to skin with patient. EBL 250 cc/ APGARS 7/9. Dr. Edgar on unit and notified of delivery. Presentation: Vertex Amniotic Membrane Rupture Type: Artificial Time of Membrane Rupture: 0335 Amniotic Fluid Description: Clear Placental Delivery Description: Spontaneous Placenta Disposition: [facility] Cord Vessel Description: 3 Vessels Cord Entanglement: Around neck x 1, loose Nuchal Cord Compression: Without compression Infant A Gender: Male (1 minute): 7 (5 minute): 9 Delayed Cord Clamping: No Post Vaginal Delivery Medications Given After Delivery: IM Pitocin Episiotomy Description: None Laceration: None Complication Complications: None
[2023-12-01 04:54] LABS: Syphilis Antibodies Non-reactive
[2023-12-01] MEDS: Rho(D) Immune Globulin 300 MCG (1500 Unit) Syringe IV (17:11)
[2023-12-02 01:02] VITALS: BP 103/62; PULSE 62; RESP 16; TEMP 36.3; O2SAT 96
[2023-12-02 04:31] VITALS: BP 105/68; PULSE 65; RESP 16; TEMP 36.7; O2SAT 97
[2023-12-02] MEDS: Naproxen 500 MG Tablet PO (05:51)
[2023-12-02 06:00] LABS: Bedside Glucose 77 mg/dL (74-106)
[2023-12-02 07:30] VITALS: BP 99/69; PULSE 70; RESP 16; TEMP 36.3; O2SAT 98
--- NOTE | 2023-12-02 07:33 | PCM.PN.OB ---
Subjective Subjective Doing well per patient and nursing staff. Ambulating and taking PO without difficulty. Voiding and passing flatus. Pain controlled. , services for assistance. Denies headache, visual changes, chest pain, shortness of breath, leg pain or increased bleeding. Lochia normal. Objective Data Objective Data Vital Signs: Vital Signs Temp Pulse Resp BP Pulse Ox O2 Del Method 98.1 F 65 16 105/68 97 Room Air 12/02/23 04:31 12/02/23 04:31 12/02/23 04:31 12/02/23 04:31 12/02/23 04:31 12/02/23 04:31 Oxygen Delivery Method Room Air Weight: 165 lb 8 oz Body Mass Index (BMI) 25.9 Intake & Output: Intake and Output for Last 24 Hours 11/30/23 12/01/23 12/02/23 23:59 23:59 23:59 Intake Total 250 / 250 Output Total 250 / 250 Balance 0 / 0 Lab / Micro Data 12/01/23 03:10 Labs: Laboratory Results - last 24 hr 12/01/23 03:10: Antibody Screen NEGATIVE 12/01/23 14:40: Screen NEGATIVE, Baby's Blood Type O POSITIVE, Baby's TIFFANY NEGATIVE 12/02/23 05:39: POC Glucose 77 ROS Constitutional Constitutional: Reports systems reviewed and no addt'l complaints, except as documented; Denies headache(s) Eyes Eyes: Denies acute decrease in peripheral vision, blurry vision or change in vision ENT HEENT: Reports systems reviewed and no addt'l complaints, except as documented Cardiovascular Cardiovascular: Denies chest pain or dizziness Respiratory/Chest Respiratory/Chest: Denies cough, dyspnea, dyspnea on exertion, shortness of breath at rest or shortness of breath with exertion Gastrointestinal Gastrointestinal: Denies abdominal pain, diarrhea, nausea or vomiting Genitourinary Genitourinary: Denies abdominal discomfort Musculoskeletal Musculoskeletal: Denies limited range of motion Integumentary Integumentary: Reports systems reviewed and no addt'l complaints, except as documented Neurologic Neurologic: Reports systems reviewed and no addt'l complaints, except as documented Psychiatric Psychiatric: Reports systems reviewed and no addt'l complaints, except as documented Endocrine Endocrinology: Reports systems reviewed and no addt'l complaints, except as documented Hematologic/Lymphatic Hematologic/Lymphatic: Reports systems reviewed and no addt'l complaints, except as documented Allergic/Immunologic Allergic/Immunologic: Reports systems reviewed and no addt'l complaints, except as documented Physical Exam Const alert and oriented x3 General Appearance: cooperative Orientation / Consciousness: awake, oriented to person, oriented to place and oriented to time Exam Limitations: no limitations HEENT normocephalic Head and Scalp: normal to inspection, normocephalic and atraumatic Face and Sinus: normal facial exam Eyes General Eye: normal appearance of both eyes Neck full ROM Chest Chest: symmetrical chest wall rise Resp normal respiratory effort and normal air movement Auscultation: clear to auscultation bilaterally Cardio regular rate, regular rhythm, S1 normal heart sound, S2 normal heart sound, no murmurs, no rub, no gallops and no clicks GI normal to inspection, nondistended, normoactive bowel sounds and non-tender appearance of the vagina normal Bladder / Kidney Exam: no CVA tenderness Back/Spine normal ROM Extremity normal to inspection and full ROM Skin no rashes or lesions noted Neuro oriented x3, CN's II-XII intact bilaterally and moves all extremities Sensorium / Orientation: awake, alert and oriented to person Motor Exam: clonus absent Deep Tendon Reflexes: Rt Patellar (L4): 2+ and Lt Patellar (L4): 2+ Assessment & Plan (1) Precipitous delivery: (2) Rh negative status during : (3) (spontaneous vaginal delivery): PLAN: Plan 1) PPD#1 2) 3) Vitals stable 4) Pain controlled 5) D/C home 6) 2wk virtual and 6wk PP visit follow up
--- NOTE | 2023-12-02 07:34 | DCINST_ITS ---
Discharge Instructions Diet Discharge Diet: No restrictions Activity May resume sexual activity in: 6 weeks Weight Bearing Status: Full weight bearing Dressing / Incision Call your doctor if you observe: Fever of 101 or Higher, Inability to urinate, Inability to have a bowel movement, Using more than 1 pad per hour, Shortness of breath, Dizziness, Fainting spells, Chest pain, Increased palpitations (i rregular heartbeat), Calf discomfort and Uncontrolled pain Follow Up Care Test Results: Test results from this visit will be discussed in further detail at your follow- up appointment, if applicable. Discharge Plan Admission Admit Date/Time: 12/01/23 03:13 Attending Provider: Micaela Shine Primary Care Provider: Wade Cristobal Discharge Orders/Prescriptions Prescriptions: New acetaminophen 500 mg Tablet 1,000 mg PO Q6H PRN PRN (Reason: Pain 1-10 Or Fever) Qty: 0 0RF naproxen 500 mg Tablet 500 mg PO Q8H PRN PRN (Reason: Pain Score 1-10) Qty: 0 0RF No Action 1 mg Tablet 1 tab PO DAILY Referrals / Follow Up: Wade Cristobal MD [Primary Care Provider] - Disposition Disposition (needs filled in before D/C Order can be placed): Home, Self Care
[2023-12-02] MEDS: Acetaminophen 500 MG Tablet 1000 MG PO (09:12)
[2023-12-02 13:25] VITALS: BP 96/66; PULSE 70; RESP 16; TEMP 36.5; O2SAT 97
== END 2023-12-02 14:34 | disposition home or self-care (01) | DRG 807 ==
LOC: WPOUT 03:15 → WP 03:15
PROVIDERS: Admitting Provider Advanced Practice Midwife; PCP Family Medicine; Referring Provider Advanced Practice Midwife; Visit Provider Advanced Practice Midwife
DX: O42.92 Full-term premature rupture of membranes, unspecified as to length of time between rupture and onset of labor (principal); Z37.0 Single live birth; O24.420 Gestational diabetes mellitus in childbirth, diet controlled; O62.3 Precipitate labor; O26.893 Other specified pregnancy related conditions, third trimester; Z67.41 Type O blood, Rh negative; O69.81X0 Labor and delivery complicated by cord around neck, without compression, not applicable or unspecified; Z3A.39 39 weeks gestation of pregnancy
CPT/HCPCS: 59025; 59050; 82962; 85025; 85461; 86780; 86850; 86900; 86901; 90384; 99221; G0378; J2790; J2791